=== PATIENT | female | born 1960 | race Caucasian/White ===

== ENCOUNTER 2024-01-18 05:23 | Emergency (ER) | payer BC ==
[~2024-01-18] VITALS: Ht 170.2 cm; Wt 94.8 kg
[2024-01-18 05:30] VITALS: TEMP 98.5
[2024-01-18 06:39] LABS: CORONAVIRUS COVID-19 AG NEGATIVE (NEGATIVE); INFLUENZA A AG NEGATIVE (NEGATIVE); INFLUENZA B AG NEGATIVE (NEGATIVE)
[2024-01-18 07:08] VITALS: PULSE 75; RESP 20
[2024-01-18] MEDS: ALBUTEROL SULF 0.083% NEB SOLN 3 ML NEB NEB STA (07:08)
[2024-01-18 08:00] VITALS: PULSE 77; RESP 17; O2SAT 96
[2024-01-18] MEDS ORDERED: BENZONATATE100 MG PO (08:18)
[2024-01-18] MEDS ORDERED: NASACORT16.9 ML (08:20)
== END 2024-01-18 08:43 | disposition home or self-care (01) ==
LOC: ER 05:33
DX: R05.9 Cough, unspecified (principal); J06.9 Acute upper respiratory infection, unspecified; I10 Essential (primary) hypertension; E78.5 Hyperlipidemia, unspecified; E03.9 Hypothyroidism, unspecified; Z11.52 Encounter for screening for COVID-19
CPT/HCPCS: 71045; 99283